=== PATIENT | male | born 1965 | race Hispanic/Latino ===

== ENCOUNTER 2019-01-25 09:51 | Emergency (ER) | payer OTHER ==
[~2019-01-25] VITALS: Ht 172.7 cm; Wt 105.8 kg
[2019-01-25 09:53] VITALS: BP 147/77
[2019-01-25] MEDS ORDERED: CYCLOBENZAPRINE 5MG TABLET PO ONE (10:30)
[2019-01-25] MEDS ORDERED: IBUPROFEN 800 MG TAB PO ONE (10:30)
[2019-01-25] MEDS ORDERED: LIDOCAINE 5% (LIDODERM) PATCH TD ONE (10:30)
[2019-01-25] MEDS ORDERED: LIDO5DIS41 TD (10:35)
[2019-01-25] MEDS ORDERED: ACET-683 PO (10:35)
[2019-01-25] MEDS ORDERED: CYCL5TAB PO (10:35)
[2019-01-25] MEDS ORDERED: IBUP-1022 PO (10:35)
== END 2019-01-25 10:53 | disposition home or self-care (01) ==
LOC: M ED 09:51
DX: M54.31 Sciatica, right side (principal)

== ENCOUNTER 2020-02-15 14:20 | Emergency (ER) | payer OTHER ==
[~2020-02-15] VITALS: Ht 170.2 cm; Wt 104.2 kg
[~2020-02-15 14:20] MED LIST: ACET-683 PO; CYCL5TAB PO; IBUP-1022 PO; LIDO5DIS41 TD
[2020-02-15] MEDS ORDERED: methylPREDNISolone 125MG 2ML VIAL IM ONE (15:15)
[2020-02-15] MEDS ORDERED: CYCLOBENZAPRINE 10MG TABLET PO ONE (15:15)
[2020-02-15] MEDS ORDERED: KETOROLAC 60MG 2ML VIAL IM ONE (15:15)
[2020-02-15 17:23] LABS: CHLAMYDIA DNA AMPLIFICATION NEGATIVE (NEGATIVE); GC DNA AMPLIFICATION NEGATIVE (NEGATIVE)
[2020-02-15] MEDS ORDERED: CYCL-707 PO (17:36)
[2020-02-15 17:39] VITALS: BP 131/69
== END 2020-02-15 17:40 | disposition home or self-care (01) ==
LOC: M ED 14:20
DX: M54.5 Low back pain (principal); F17.200 Nicotine dependence, unspecified, uncomplicated
CPT/HCPCS: 87661; 96372; 99283; J1885; J2930

== ENCOUNTER 2020-06-19 14:12 | Emergency (ER) | payer OTHER ==
[~2020-06-19] VITALS: Ht 170.2 cm; Wt 107.1 kg
[~2020-06-19 14:12] MED LIST changes: +CYCL-707 PO
[2020-06-19] MEDS ORDERED: KETOROLAC 30 MG/ML 1ML VIAL IM ONE (14:40)
--- NOTE | 2020-06-19 15:16 | REP ---
INDICATION: R hip pain COMPARISON: None. TECHNIQUE: AP and frog-lateral views of the right hip FINDINGS: No acute fracture or dislocation. No significant degenerative changes. No osteophytosis. Surrounding soft tissues are normal. IMPRESSION: Age-appropriate right hip radiographs. <Electronically signed by Sixto Owen > 06/19/20 [id number]
[2020-06-19] MEDS ORDERED: IBUP80TA PO (15:18)
[2020-06-19 15:37] VITALS: BP 125/87
== END 2020-06-19 15:42 | disposition home or self-care (01) ==
LOC: M ED 14:12
DX: S76.011A Strain of muscle, fascia and tendon of right hip, initial encounter (principal); X50.0XXA Overexertion from strenuous movement or load, initial encounter; Y92.019 Unspecified place in single-family (private) house as the place of occurrence of the external cause; Y93.9 Activity, unspecified; Y99.9 Unspecified external cause status; F17.200 Nicotine dependence, unspecified, uncomplicated
CPT/HCPCS: 73502; 96372; 99283; J1885

== ENCOUNTER → 2020-07-19 | Outpatient (CLI) | payer SELFPAY ==
[~2020-07-19] MED LIST changes: +IBUP80TA PO
== END ==
LOC: M LABSMTC 10:18
PROVIDERS: ATTEND Pediatrics
DX: Z20.828 Contact with and (suspected) exposure to other viral communicable diseases (principal); Z11.59 Encounter for screening for other viral diseases

== ENCOUNTER 2020-09-18 12:14 | Emergency (ER) | payer OTHER ==
[~2020-09-18] VITALS: Ht 170.2 cm; Wt 102.3 kg
[2020-09-18 12:14] VITALS: BP 137/81
== END 2020-09-18 16:23 | disposition left against medical advice (07) ==
LOC: M ED 12:14
DX: Z53.21 Procedure and treatment not carried out due to patient leaving prior to being seen by health care provider (principal)

== ENCOUNTER 2020-09-19 18:02 | Emergency (ER) | payer OTHER ==
[~2020-09-19] VITALS: Ht 170.2 cm; Wt 101.4 kg
[2020-09-19 18:09] VITALS: BP 105/67
--- NOTE | 2020-09-19 18:41 | REP ---
INDICATION: injury, please include thumb COMPARISON: 06/17/2015. TECHNIQUE: Four views left hand. FINDINGS: There is no evidence of acute fracture, dislocation, or intrinsic bone disease.There are mild degenerative changes at the joint between the trapezium and base of 1st metacarpal. There is moderate spurring at the dorsal base of the 2nd distal phalanx. IMPRESSION: No fracture or dislocation. <Electronically signed by John Bah > 09/19/20 [id number]
[2020-09-20] MEDS ORDERED: VOLT1GEL15 TOP (01:56)
== END 2020-09-19 19:23 | disposition left against medical advice (07) ==
LOC: M ED 18:02
DX: Z53.21 Procedure and treatment not carried out due to patient leaving prior to being seen by health care provider (principal)

== ENCOUNTER 2020-09-19 21:59 | Emergency (ER) | payer OTHER ==
[~2020-09-19] VITALS: Ht 170.2 cm; Wt 101.4 kg
[2020-09-20] MEDS ORDERED: NORCO 5/325MG TABLET (BULK FOR ED) PO ONE (01:55)
[2020-09-20] MEDS ORDERED: IBUPROFEN 600MG TAB PO ONE (01:55)
[2020-09-20] MEDS ORDERED: VOLT1GEL15 TOP (01:56)
[2020-09-20 02:15] VITALS: BP 118/78
== END 2020-09-20 02:16 | disposition home or self-care (01) ==
LOC: M ED 21:59
DX: S69.92XA Unspecified injury of left wrist, hand and finger(s), initial encounter (principal); W21.89XA Striking against or struck by other sports equipment, initial encounter; Y92.9 Unspecified place or not applicable; Y93.64 Activity, baseball; Y99.9 Unspecified external cause status

== ENCOUNTER 2021-05-01 21:07 | Emergency (ER) | payer OTHER ==
[~2021-05-01] VITALS: Ht 109.2 cm; Wt 101.4 kg
[~2021-05-01 21:07] MED LIST changes: +VOLT1GEL15 TOP
[2021-05-01 21:10] VITALS: BP 127/84
== END 2021-05-02 00:20 | disposition left against medical advice (07) ==
LOC: M ED 21:07
DX: Z53.21 Procedure and treatment not carried out due to patient leaving prior to being seen by health care provider (principal)

== ENCOUNTER 2022-02-26 19:19 | Emergency (ER) | payer OTHER ==
[~2022-02-26] VITALS: Ht 170.2 cm; Wt 101.0 kg
[2022-02-26 19:21] VITALS: BP 116/97
== END 2022-02-26 19:45 | disposition left against medical advice (07) ==
LOC: M ED 19:19
DX: Z53.21 Procedure and treatment not carried out due to patient leaving prior to being seen by health care provider (principal)

== ENCOUNTER 2022-05-28 09:11 | Emergency (ER) | payer OTHER ==
[~2022-05-28] VITALS: Ht 170.2 cm; Wt 98.0 kg
[2022-05-28 10:41] LABS: RSV AMPLIFICATION NEGATIVE (NEGATIVE)
[2022-05-28 10:43] LABS: BASO % 0.5 % (0.0-1.0); EOS % 0.3 % (0.0-3.0); HEMATOCRIT 39.6 % (42.0-52.0); HEMOGLOBIN 13.5 g/dl (13.5-17.5); LYMPH # 1.5 10^3/uL (1.5-5.0); LYMPH % 26.3 % (24.0-44.0); MEAN CORPUSCULAR HEMOGLOBIN 29.9 pg (27.0-33.0); MEAN CORPUSCULAR HGB CONC 34.1 g/dl (32.0-36.5); MEAN CORPUSCULAR VOLUME 87.8 fl (80.0-96.0); MONO # 0.7 10^3/uL (0.0-0.8); MONO % 11.6 % (2.0-8.0); NEUTROPHILS # 3.5 10^3/uL (1.5-8.5); NEUTROPHILS % 61.1 % (36.0-66.0); PLATELET COUNT, AUTOMATED 306 10^3/uL (150-450); RED BLOOD COUNT 4.51 10^6/uL (4.30-6.10); WHITE BLOOD COUNT 5.8 10^3/uL (4.0-10.0)
[2022-05-28 10:48] LABS: INR 1.04; PARTIAL THROMBOPLASTIN TIME 31.3 SECONDS (24.8-34.2); PROTHROMBIN TIME 13.8 SECONDS (12.5-14.5)
[2022-05-28 11:20] LABS: CK-MB VALUE MASS < 1.0 NG/ML (<3.6)
[2022-05-28 11:21] LABS: CPK CREATINE PHOSPHOKINASE 67 U/L (46-171); MB/CK RELATIVE INDEX 1.49 (< OR =4)
[2022-05-28 11:24] LABS: LIPASE 36 U/L (12-53)
[2022-05-28] MEDS ORDERED: methylPREDNISolone 125MG 2ML VIAL IV ONE (11:35)
[2022-05-28] MEDS ORDERED: ALBUTEROL SULFATE 2.5MG/0.5ML INH NEB SOLN INH ONE (11:35)
[2022-05-28] MEDS ORDERED: IPRATROPIUM 0.5MG/ALBUTEROL 2.5MG INH SOL UD 3ML (DUONEB) NEB ONE (11:35)
[2022-05-28 11:44] LABS: ALBUMIN 3.4 G/DL (3.2-5.2); ALKALINE PHOSPHATASE 74 U/L (46-116); ALT/SGPT 14 U/L (7.0-40); AST/SGOT 21 U/L (<34); BILIRUBIN,DIRECT 0.2 MG/DL (<0.4); BILIRUBIN,TOTAL 0.5 MG/DL (0.3-1.2); BLOOD UREA NITROGEN 16 MG/DL (9-23); CARBON DIOXIDE LEVEL 26 MMOL/L (20-31); CHLORIDE LEVEL 107 MMOL/L (98-107); CK-MB VALUE MASS < 1.0 NG/ML (<3.6); CREATININE FOR GFR 0.97 MG/DL (0.70-1.30); GLOMERULAR FILTRATION RATE > 60.0 (>56); GLUCOSE, FASTING 121 MG/DL (60-100); POTASSIUM SERUM 3.6 MMOL/L (3.5-5.1); SODIUM LEVEL 138 MMOL/L (136-145); THYROID STIMULATING HORMONE 1.354 uIU/ML (0.55-4.78)
[2022-05-28] MEDS ORDERED: NICO21DI37 TOP (12:59)
[2022-05-28] MEDS ORDERED: ALBU8.5H INH (12:59)
[2022-05-28] MEDS ORDERED: PRED20TA PO (12:59)
[2022-05-28 13:07] LABS: TOTAL PROTEIN 6.8 G/DL (5.7-8.2)
[2022-05-28 13:08] LABS: CPK CREATINE PHOSPHOKINASE 73 U/L (46-171); MB/CK RELATIVE INDEX 1.36 (< OR =4)
[2022-05-28 13:24] VITALS: BP 114/83
== END 2022-05-28 13:32 | disposition home or self-care (01) ==
LOC: EDBD 09:11 → M ED 09:11
DX: J44.1 Chronic obstructive pulmonary disease with (acute) exacerbation (principal); F17.200 Nicotine dependence, unspecified, uncomplicated; Z79.52 Long term (current) use of systemic steroids; Z79.51 Long term (current) use of inhaled steroids; Z79.899 Other long term (current) drug therapy
CPT/HCPCS: 71045; 80048; 80076; 82550; 82553; 83690; 83880; 84443; 85025; 85610; 85730; 87631; 93005; 93041; 94640; 94760; 96374; 99285; J2930

== ENCOUNTER 2022-07-13 09:55 | Emergency (ER) | payer MEDICAID, OTHER ==
[~2022-07-13] VITALS: Ht 170.2 cm; Wt 101.4 kg
[~2022-07-13 09:55] MED LIST changes: +ALBU8.5H INH; +NICO21DI37 TOP; +PRED20TA PO
[2022-07-13] MEDS ORDERED: diazePAM 5MG TABLET PO ONE (10:20)
[2022-07-13] MEDS ORDERED: ACETAMINOPHEN 500 MG TAB PO ONE (10:20)
[2022-07-13] MEDS ORDERED: LIDOCAINE 5% (LIDODERM) PATCH TD ONE (10:20)
[2022-07-13] MEDS ORDERED: LIDO5DIS41 TD (10:20)
[2022-07-13] MEDS ORDERED: KETOROLAC 30 MG/ML 1ML VIAL IM ONE (10:20)
[2022-07-13] MEDS ORDERED: ACET-683 PO (10:21)
[2022-07-13] MEDS ORDERED: CYCL5TAB PO (10:21)
[2022-07-13 11:36] VITALS: BP 131/77
== END 2022-07-13 11:36 | disposition home or self-care (01) ==
LOC: M ED 09:55
DX: M54.50 Low back pain, unspecified (principal); F17.200 Nicotine dependence, unspecified, uncomplicated; F32.A Depression, unspecified; Z79.82 Long term (current) use of aspirin; Z79.899 Other long term (current) drug therapy
CPT/HCPCS: 96372; 99283; J1885

== ENCOUNTER → 2022-07-18 | Outpatient (CLI) | payer OTHER | LOC: M SOG 08:07 | PROVIDERS: ATTEND Orthopaedic Surgery | DX: M25.552 Pain in left hip (principal); M51.36 Other intervertebral disc degeneration, lumbar region ==

== ENCOUNTER 2023-04-10 12:20 | Emergency (ER) | payer OTHER ==
[~2023-04-10] VITALS: Ht 170.2 cm; Wt 101.9 kg
[2023-04-10 12:21] VITALS: BP 118/80; TEMP 97.7; O2SAT 97
== END 2023-04-10 14:55 | disposition home or self-care (01) ==
LOC: M ED 12:20
DX: S93.402A Sprain of unspecified ligament of left ankle, initial encounter (principal); W18.42XA Slipping, tripping and stumbling without falling due to stepping into hole or opening, initial encounter; Y92.410 Unspecified street and highway as the place of occurrence of the external cause; Y93.89 Activity, other specified; Y99.9 Unspecified external cause status; Z79.52 Long term (current) use of systemic steroids; Z79.1 Long term (current) use of non-steroidal anti-inflammatories (NSAID)

== ENCOUNTER 2023-04-20 21:41 | Emergency (ER) | payer OTHER ==
[~2023-04-20] VITALS: Ht 170.2 cm; Wt 100.5 kg
[2023-04-21] MEDS ORDERED: CHLORHEXIDINE GLUCONATE 0.12 % 15ML UDC (PERIDEX ORAL RINSE) SSP STA (04:22)
[2023-04-21] MEDS ORDERED: dexAMETHasone 4 MG TAB PO ONE (04:25)
[2023-04-21] MEDS ORDERED: CEPHALEXIN 500 MG CAP PO ONE (04:35)
[2023-04-21] MEDS ORDERED: DEXA6TAB PO (04:53)
[2023-04-21] MEDS ORDERED: NYST-38 PO (04:53)
[2023-04-21] MEDS ORDERED: CEPH500C PO (04:53)
[2023-04-21 05:11] VITALS: BP 125/70; TEMP 97.7; O2SAT 98
== END 2023-04-21 05:33 | disposition home or self-care (01) ==
LOC: M ED 21:41
DX: K14.0 Glossitis (principal); J45.909 Unspecified asthma, uncomplicated; Z79.52 Long term (current) use of systemic steroids; Z79.1 Long term (current) use of non-steroidal anti-inflammatories (NSAID); Z79.899 Other long term (current) drug therapy

== ENCOUNTER 2023-08-23 15:16 | Emergency (ER) | payer OTHER ==
[~2023-08-23] VITALS: Ht 170.2 cm; Wt 101.1 kg
[~2023-08-23 15:16] MED LIST changes: +CEPH500C PO; +DEXA6TAB PO; +NYST-38 PO
[2023-08-23 15:17] VITALS: BP 112/75; TEMP 98.6; O2SAT 99
[2023-08-23] MEDS ORDERED: DEBR6.5S4 AS (17:33)
== END 2023-08-23 17:43 | disposition home or self-care (01) ==
LOC: M ED 15:16
DX: S90.121A Contusion of right lesser toe(s) without damage to nail, initial encounter (principal); H92.02 Otalgia, left ear; H61.22 Impacted cerumen, left ear; F41.9 Anxiety disorder, unspecified; F32.A Depression, unspecified; F17.200 Nicotine dependence, unspecified, uncomplicated; F10.10 Alcohol abuse, uncomplicated; Y92.009 Unspecified place in unspecified non-institutional (private) residence as the place of occurrence of the external cause; Y93.89 Activity, other specified; Y99.9 Unspecified external cause status; Z79.899 Other long term (current) drug therapy

== ENCOUNTER 2023-10-28 10:36 | Emergency (ER) | payer OTHER ==
[~2023-10-28] VITALS: Ht 170.2 cm; Wt 101.3 kg
[~2023-10-28 10:36] MED LIST changes: +DEBR6.5S4 AS
[2023-10-28] MEDS: DERMABOND TOPICAL SKIN ADHESIVE TOP ONE (12:45)
[2023-10-28] MEDS: BOOSTRIX VACCINE (TETANUS/DIPHTH/ACEL. PERTUSSIS) 0.5ML SYR IM ONE (12:57)
[2023-10-28 13:05] VITALS: BP 113/75; TEMP 97.3; O2SAT 94
== END 2023-10-28 13:10 | disposition home or self-care (01) ==
LOC: M ED 10:36
DX: S60.411A Abrasion of left index finger, initial encounter (principal); W26.0XXA Contact with knife, initial encounter; F17.200 Nicotine dependence, unspecified, uncomplicated; Y92.009 Unspecified place in unspecified non-institutional (private) residence as the place of occurrence of the external cause; Y93.G1 Activity, food preparation and clean up; Y99.9 Unspecified external cause status; Z79.1 Long term (current) use of non-steroidal anti-inflammatories (NSAID); Z79.899 Other long term (current) drug therapy; Z23 Encounter for immunization

== ENCOUNTER 2023-12-07 09:10 | Emergency (ER) | payer OTHER ==
[~2023-12-07] VITALS: Ht 170.2 cm; Wt 99.5 kg
[2023-12-07] MEDS: POLYTRIM OPTH DROPS 10ML OD SCH (10:05)
[2023-12-07] MEDS: FLUORESCEIN OPHTH 1MG STRIP OU ONE (10:05)
[2023-12-07] MEDS ORDERED: POLY2.5S OD (10:12)
[2023-12-07] MEDS: PROPARACAINE 0.5% OPHTH SOL 15ML OU ONE (10:18)
[2023-12-07 10:29] VITALS: BP 126/64; TEMP 97.8; O2SAT 98
== END 2023-12-07 10:32 | disposition home or self-care (01) ==
LOC: M ED 09:10
DX: H10.31 Unspecified acute conjunctivitis, right eye (principal); Z79.2 Long term (current) use of antibiotics

== ENCOUNTER 2023-12-26 12:18 | Emergency (ER) | payer OTHER ==
[~2023-12-26] VITALS: Ht 170.2 cm; Wt 98.2 kg
[~2023-12-26 12:18] MED LIST changes: +POLY2.5S OD
[2023-12-26 13:08] VITALS: BP 120/90; TEMP 98.1; O2SAT 96
[2023-12-26] MEDS: IBUPROFEN 600MG TAB PO ONE (13:31)
== END 2023-12-26 13:36 | disposition home or self-care (01) ==
LOC: M ED 12:18
DX: S46.912A Strain of unspecified muscle, fascia and tendon at shoulder and upper arm level, left arm, initial encounter (principal); X50.0XXA Overexertion from strenuous movement or load, initial encounter; F17.200 Nicotine dependence, unspecified, uncomplicated; Z79.899 Other long term (current) drug therapy; Y92.009 Unspecified place in unspecified non-institutional (private) residence as the place of occurrence of the external cause; Y93.89 Activity, other specified; Y99.9 Unspecified external cause status

== ENCOUNTER 2024-01-01 16:13 | Emergency (ER) | payer OTHER ==
[~2024-01-01] VITALS: Ht 170.2 cm; Wt 98.4 kg
[2024-01-01 16:15] VITALS: BP 114/70; TEMP 98.2
[2024-01-01] MEDS ORDERED: CYCL5TAB PO (21:28)
[2024-01-01] MEDS ORDERED: IBUP-1022 PO (21:29)
[2024-01-01 21:35] VITALS: O2SAT 99
[2024-01-01] MEDS: KETOROLAC 60MG 2ML VIAL IM ONE (21:35)
[2024-01-01] MEDS: MORPHINE 10 MG/ML 1ML VIAL IM ONE (21:35)
== END 2024-01-01 21:35 | disposition home or self-care (01) ==
LOC: M ED 16:13
DX: S33.5XXA Sprain of ligaments of lumbar spine, initial encounter (principal); M54.50 Low back pain, unspecified; X50.0XXA Overexertion from strenuous movement or load, initial encounter; Y92.009 Unspecified place in unspecified non-institutional (private) residence as the place of occurrence of the external cause; Y93.89 Activity, other specified; Y99.9 Unspecified external cause status; Z79.899 Other long term (current) drug therapy; Z79.1 Long term (current) use of non-steroidal anti-inflammatories (NSAID)
CPT/HCPCS: 96372; 99282; J1885

== ENCOUNTER 2025-04-07 13:54 | Emergency (ER) | payer OTHER ==
[~2025-04-07] VITALS: Ht 200.7 cm; Wt 107.5 kg
[~2025-04-07 13:54] MED LIST changes: -CYCL5TAB PO; +CYCL5TAB4 PO; -IBUP-1022 PO; +IBUP600T42 PO; +LIDO1ADH93 TD; -LIDO5DIS41 TD
[2025-04-07] MEDS: NS (Normal Saline) 0.9% 1,000 ML IV ONE (14:10)
[2025-04-07] MEDS ORDERED: ISOVUE-370 76% 100 ML VIAL As Ordered ONE (14:16)
[2025-04-07 14:25] LABS: BASO # 0.0 10^3/uL (0.0-0.2); BASO % 0.5 % (0.0-1.0); EOS # 0.0 10^3/uL (0.0-0.5); EOS % 0.9 % (0.0-3.0); LYMPH # 1.4 10^3/uL (1.5-5.0); LYMPH % 33.0 % (24.0-44.0); MONO # 0.8 10^3/uL (0.0-0.8); MONO % 18.6 % (2.0-8.0); NEUTROPHILS # 2.0 10^3/uL (1.5-8.5); NEUTROPHILS % 46.8 % (36.0-66.0); PLATELET COUNT, AUTOMATED 246 10^3/uL (150-450)
[2025-04-07] MEDS: NS 500 ML IV ONE (14:45)
[2025-04-07 14:50] LABS: CPK CREATINE PHOSPHOKINASE 52 U/L (46-171)
[2025-04-07 14:51] LABS: ALT/SGPT 22 U/L (7.0-40); AST/SGOT 24 U/L (<34); CALCIUM LEVEL 8.7 MG/DL (8.3-10.6); CARBON DIOXIDE LEVEL 30 MMOL/L (20-31); CHLORIDE LEVEL 104 MMOL/L (98-107); CK-MB VALUE MASS < 1.0 NG/ML (<3.6); CREATININE FOR GFR 1.06 MG/DL (0.70-1.30); D-DIMER QUANT 0.51 ug/mL (<0.5); GLOMERULAR FILTRATION RATE 79.9 (>49); INR 0.97; POTASSIUM SERUM 3.7 MMOL/L (3.5-5.1); SODIUM LEVEL 140 MMOL/L (136-145)
[2025-04-07 14:53] LABS: FREE T4 1.03 NG/DL (0.89-1.76)
[2025-04-07 15:40] LABS: CK-MB VALUE MASS < 1.0 NG/ML (<3.6)
[2025-04-07 15:41] LABS: CPK CREATINE PHOSPHOKINASE 46 U/L (46-171)
[2025-04-07 17:45] LABS: CK-MB VALUE MASS < 1.0 NG/ML (<3.6)
[2025-04-07 17:51] LABS: CPK CREATINE PHOSPHOKINASE 50 U/L (46-171)
[2025-04-07 18:51] VITALS: BP 143/84; TEMP 97.2; O2SAT 98
== END 2025-04-07 18:52 | disposition home or self-care (01) ==
LOC: M ED 13:54
DX: R07.9 Chest pain, unspecified (principal); R59.0 Localized enlarged lymph nodes; I31.39 Other pericardial effusion (noninflammatory); M54.50 Low back pain, unspecified; F32.9 Major depressive disorder, single episode, unspecified; Z79.1 Long term (current) use of non-steroidal anti-inflammatories (NSAID); Z79.899 Other long term (current) drug therapy
CPT/HCPCS: 70450; 70496; 70498; 71045; 71260; 74177; 80047; 80048; 80076; 82550; 82553; 83690; 83880; 84439; 84443; 84484; 85025; 85379; 85610; 85730; 86850; 86900; 86901; 87486; 87581; 87633; 87798; 93005; 93041; 93970; 94760; 96360; 99285; Q9967